=== PATIENT | female | born 1960 | race Caucasian/White ===

== ENCOUNTER 2017-11-15 15:25 | Emergency (ER) | payer BC, OTHER ==
[2017-11-15] MEDS ORDERED: LIDOCAINE 2% 10 ML MDV SUBQ STA (16:25)
--- NOTE | 2017-11-15 16:33 | ED Physician Documentation ---
PD HPI UPPER EXT INJURY - Stated complaint Stated Complaint: LT FINGER CUT - Chief complaint Chief Complaint: Laceration - History obtained from History obtained from: Patient - History of Present Illness Location: Left, Finger (5th) Type of injury: Laceration (meat trimmer) Where injury occurred: Home Timing - onset: How many hours ago (1), Today Timing - duration: Hours (1) Timing - details: Abrupt onset Pain level max: 7 Pain level now: 4 Improved by: Rest Worsened by: Moving, Palpating Associated symptoms: No: Weakness, Numbness, Tingling, Swelling Contributing factors: No: Anticoagulated - Additonal information Additional information: L 5th digit laceration from a meat trimmer. Patient is left handed. Td UTD. Review of Systems Neurologic: denies: Focal weakness, Numbness PD PAST MEDICAL HISTORY - Past Medical History Past Medical History: No - Past Surgical History Past Surgical History: No - Present Medications Home Medications: Ambulatory Orders Medication Instructions Recorded Confirmed Cephalexin [Keflex] 500 mg PO Q6H #28 capsule 11/15/17 Hydrocodone/Acetaminophen 1 - 2 each PO Q6H PRN #10 tablet 11/15/17 [Hydrocodon-Acetaminophen 5-325] - Allergies Allergies/Adverse Reactions: Allergies Allergy/AdvReac Type Severity Reaction Status Date / Time aspirin Allergy Unknown Verified 11/15/17 15:55 - Living Situation Living Arrangement: reports: At home - Social History Does the pt smoke?: No Does the pt have substance abuse?: No - Family History Family history: reports: Non contributory - Immunizations Immunizations are current?: Yes Immunizations: TDAP current <10years PD ED PE NORMAL - Vitals Vital signs reviewed: Yes - General General: Alert and oriented X 3 - Derm Derm: Warm and dry - Neuro Neuro: Alert and oriented X 3 - Psych Psych: Normal mood, Normal affect PD ED PE EXPANDED - Extremities CHA UE/Hands Visual: 1 - laceration (Approximately 1 cm in length, just behind the nail. Does not actually involve the nail but may involve the nail matrix. Neurovascularly intact. 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 ) Procedures - Laceration (location) L 5th digit Length in cm: 1 Wound type: Curved, Into muscle, Clean Neurovascular status: Sensory intact, Motor intact, Vascular intact Tendon involvement: Tendon intact. No: Tendon Injury Anesthesia: Lidocaine 2% (transthecal block) Wound Preparation: Irrigated copiously NS, Wound explored, To the base. No: FB identified, FB removed Skin layer closure: Nylon, Interrupted, Size #-0 - enter number (4), Sutures - enter # (4) Other: Patient tolerated well, No complications, Neurovascular intact, Dressing applied (finger splint), Tetanus UTD Complexity: Simple PD MEDICAL DECISION MAKING - ED course Complexity details: reviewed results, re-evaluated patient, considered differential, d/w patient ED course: Patient is a 57-year-old female who presents to the emergency department the laceration to the left fifth digit from a meat trimmer earlier today. She did cut through the distal phalanx of the fifth digit at its midportion. She was given IM Ancef and will place on Keflex for home. Wound was irrigated thoroughly and will have her follow-up closely with her doctor to ensure it does not become infected. Warnings of infection were given at bedside. Tetanus is up-to-date. Patient counseled regarding signs and symptoms for which I believe and urgent re-evaluation would be necessary. Patient with good understanding of and agreement to plan and is comfortable going home at this time This document was made in part using voice recognition software. While efforts are made to proofread this document, sound alike and grammatical errors may occur. No evidence of tendon or nerve injury. Patient was counseled that she may lose the fingernail - Sepsis Event Vital Signs: Vital Signs - 24 hr 11/15/17 11/15/17 15:52 17:44 Temperature 36.5 C Heart Rate 77 70 Respiratory 18 16 Rate Blood Pressure 142/73 H 135/74 H O2 Saturation 100 100 Oxygen O2 Source Room air Departure - Departure Disposition: 01 Home, Self Care Clinical Impression: Fracture, finger, distal phalanx, open Qualifiers: Encounter type: initial encounter Finger: little finger Fracture alignment: nondisplaced Laterality: left Qualified Code(s): S62.667B - Nondisplaced fracture of distal phalanx of left little finger, initial encounter for open fracture Finger laceration Qualifiers: Encounter type: initial encounter Finger: little finger Damage to nail status: with damage Foreign body presence: without foreign body Laterality: left Qualified Code(s): S61.317A - Laceration without foreign body of left little finger with damage to nail, initial encounter Condition: Good Instructions: ED Fx Finger Open, ED Laceration Hand Follow-Up: your,doctor in 3 days for wound check [Other] Prescriptions: Cephalexin [Keflex] 500 mg PO Q6H #28 capsule Hydrocodone/Acetaminophen [Hydrocodon-Acetaminophen 5-325] 1 - 2 each PO Q6H PRN #10 tablet PRN Reason: pain Comments: Return if you worsen. Take all antibiotics until gone. Follow-up with your doctor in 3 days for a wound check. The sutures should be removed in 10-14 days with your doctor. Wear the splint as much as possible. Do not drink alcohol or drive while on narcotic pain medicine. Note that many narcotic pain relievers also contain tylenol/acetaminophen. Please ensure that your total dose of acetaminophen from all sources does not exceed 3 grams (3000mg) per day. You may constipated on this medication, take a stool softener such as "Colace" twice a day while you are on it. Also recommend a [id number] laxative such as senna or MiraLAX any day that you do not have a bowel movement. If you received narcotic pain medication in the emergency department, do not drive or operate machinery for the next 24 hours. Discharge Date/Time: 11/15/17 17:47
--- NOTE | 2017-11-15 16:54 | XRAY Report ---
EXAM: LEFT FIFTH DIGIT RADIOGRAPHY EXAM DATE: 11/15/2017 04:28 PM. CLINICAL HISTORY: L 5th digit laceration with trimmer machine. COMPARISON: None. TECHNIQUE: 3 views. FINDINGS: Bones: There is a transverse bony amputation of the distal phalanx of the fifth digit at its midporti on. There is slight volar displacement of the distal portion. Joints: Normal. No subluxations. Soft Tissues: No radiodense foreign body seen. No soft tissue swelling. 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 [facility] Referring Provider Line: [phone] SITE ID: [id number]
[2017-11-15] MEDS ORDERED: LIDOCAINE 1%-EPI 1:100000 30 ML MDV ONE (17:03)
[2017-11-15] MEDS ORDERED: ceFAZolin 1 GM VIAL IM STA (17:10)
[2017-11-15 17:47] VITALS: BP 135/74
== END 2017-11-15 17:47 | disposition home or self-care (01) ==
LOC: ED 15:25
DX: S62.667B Nondisplaced fracture of distal phalanx of left little finger, initial encounter for open fracture (principal); S61.317A Laceration without foreign body of left little finger with damage to nail, initial encounter; W29.3XXA Contact with powered garden and outdoor hand tools and machinery, initial encounter; Y92.009 Unspecified place in unspecified non-institutional (private) residence as the place of occurrence of the external cause
CPT/HCPCS: 12001; 73140; 96372; 99283